=== PATIENT | female | born 1945 | race Caucasian/White ===

== ENCOUNTER 2017-07-29 11:16 | Inpatient (IN) | payer MEDICARE, OTHER ==
[~2017-07-29] VITALS: Ht 165.1 cm; Wt 103.9 kg
[~2017-07-29 11:16] MED LIST: ACET325 PO; ACETAMINOPHEN; ASPI81EC PO; BENICAR/HCTZ; CALCAVITDA PO; COLACE CLEAR50 MG PO; CYCL10 PO; DIPH50 PO; DOCU100 PO; DULO60 PO; ENOX100I SUBQ; FERR325 PO; GABA300 PO; GABA600 PO; HYDACE5; Hair, Skin & N1 EACH PO; LEVA.63IS INH; LEVSOD100 PO; LOSARTAN-HCTZ1 EAC2 PO; LOSHYD PO; MAGNESIUM PO; MULVITMIND PO; Micro-K10 MEQ PO; OMEP20ER PO; OMEPRAZOLE MAGN20 MG PO; OSTERA TABLET1 EACH PO; POLY500 PO; POTCHL10ER PO; PROACE100 PO; ROSU10TA PO; ROSU5 PO; TAMO20 PO; Unithroid100 MCG PO; VICODIN 5-3001 EACH PO; Ventolin/Prove6.7 GM INH; WARF2.5 PO; WARF5 PO; [UNRECOGNIZED DRUG - OTHER] PO
[2017-08-01 05:13] LABS: BASOPHILS ABSOLUTE AUTO 0.01 K/mm3 (0.00-0.23); BASOPHILS PERCENT AUTO 0 % (0-2); EOSINOPHILS ABSOLUTE AUTO 0.01 K/mm3 (0.00-0.68); EOSINOPHILS PERCENT AUTO 0 % (0-6); Hematocrit 32.3 % (33.0-51.0); Hemoglobin 10.5 g/dL (11.5-16.0); IMMATURE GRAN ABSOLUTE AUTO 0.02 K/mm3 (0.00-0.10); IMMATURE GRAN PERCENT AUTO 0 % (0-1); LYMPHOCYTES ABSOLUTE AUTO 1.15 K/mm3 (0.84-5.20); LYMPHOCYTES PERCENT AUTO 19 % (21-46); MONOCYTES ABSOLUTE AUTO 0.67 K/mm3 (0.16-1.47); MONOCYTES PERCENT AUTO 11 % (4-13); Mean Corpuscular HGB 32.5 pg (26.0-34.0); Mean Corpuscular HGB Conc 32.5 g/dL (31.5-36.5); Mean Corpuscular Volume 100 fL (80-100); Mean Platelet Volume 9.3 fL (9.1-12.4); NEUTROPHILS ABSOLUTE AUTO 4.37 K/mm3 (1.96-9.15); NEUTROPHILS PERCENT AUTO 70 % (41-73); Platelet Count 203 K/mm3 (150-400); RDW Coefficient Variation 13.2 % (11.7-14.2); RDW Standard Deviation 48.8 fL (35.1-46.3); Red Blood Cell Count 3.23 M/mm3 (3.80-5.20); White Blood Cell Count 6.23 K/mm3 (4.00-11.30)
[2017-08-01 05:45] LABS: Anion Gap 7 mmol/L (6-16); Blood Urea Nitrogen 14 mg/dL (8-24); Bun/Creatinine Ratio 15.3 (12.0-20.0); CO2, Blood 30 mmol/L (21-32); Chloride, Blood 105 mmol/L (98-108); Creatinine, Blood 0.92 mg/dL (0.40-1.00); Glomerular Filtration Rate >60 (60-); Glucose, Blood 121 mg/dL (70-99); Potassium, Blood 3.4 mmol/L (3.5-5.5); Sodium, Blood 142 mmol/L (136-145)
[2017-08-01] MEDS ORDERED: Percocet 5-3251 EACH PO (09:25)
[2017-08-01] MEDS ORDERED: XARELTO10 MG PO (09:26)
== END 2017-08-01 15:58 | disposition home or self-care (01) | DRG 470 ==
LOC: SURS 07-31 08:02 → PRE IP 07-31 10:00 → SURS 07-31 13:57
PROVIDERS: Orthopaedic Surgery
PROC: 0SR90JZ Replacement of Right Hip Joint with Synthetic Substitute, Open Approach (ICD-10-PCS; principal; 2017-07-31 10:00)
DX: M16.11 Unilateral primary osteoarthritis, right hip (principal); M79.7 Fibromyalgia; E03.9 Hypothyroidism, unspecified; Z85.3 Personal history of malignant neoplasm of breast; E11.9 Type 2 diabetes mellitus without complications; K21.9 Gastro-esophageal reflux disease without esophagitis
CPT/HCPCS: 36415; 72170; 80048; 85025; 86850; 86900; 86901; 88300; 94760; 97110; 97116; 97161; 97530; C1776; G8978; G8979; J0171; J0690; J0735; J2250; J2370; J2765; J2795; J3010; J7120

== ENCOUNTER → 2017-08-20 | Outpatient (CLI) | payer MEDICARE, OTHER ==
[~2017-08-20] MED LIST changes: +Percocet 5-3251 EACH PO; +XARELTO10 MG PO
== END | disposition home or self-care (01) ==
LOC: LAB 12:31 → LAB SHORT 12:31
DX: L53.9 Erythematous condition, unspecified (principal); Z96.641 Presence of right artificial hip joint
CPT/HCPCS: 87070; 87075; 87077; 87186; 87205

== ENCOUNTER 2017-10-21 08:34 | Day surgery (SDC) | payer MEDICARE, OTHER ==
[~2017-10-21] VITALS: Ht 165.1 cm; Wt 101.2 kg
[~2017-10-21 08:34] MED LIST changes: +HYDR1TAB94 PO; -MAGNESIUM PO; +MAGOXI400 PO
[2017-10-22 04:14] LABS: BASOPHILS ABSOLUTE AUTO 0.01 K/mm3 (0.00-0.23); BASOPHILS PERCENT AUTO 0 % (0-2); EOSINOPHILS PERCENT AUTO 0 % (0-6); Hematocrit 31.9 % (33.0-51.0); Hemoglobin 10.2 g/dL (11.5-16.0); IMMATURE GRAN ABSOLUTE AUTO 0.04 K/mm3 (0.00-0.10); IMMATURE GRAN PERCENT AUTO 0 % (0-1); LYMPHOCYTES ABSOLUTE AUTO 1.52 K/mm3 (0.84-5.20); LYMPHOCYTES PERCENT AUTO 16 % (21-46); MONOCYTES ABSOLUTE AUTO 1.04 K/mm3 (0.16-1.47); MONOCYTES PERCENT AUTO 11 % (4-13); Mean Corpuscular HGB 31.9 pg (26.0-34.0); Mean Corpuscular Volume 100 fL (80-100); Mean Platelet Volume 8.6 fL (9.1-12.4); NEUTROPHILS ABSOLUTE AUTO 6.97 K/mm3 (1.96-9.15); NEUTROPHILS PERCENT AUTO 73 % (41-73); Platelet Count 221 K/mm3 (150-400); RDW Coefficient Variation 13.8 % (11.7-14.2); RDW Standard Deviation 50.9 fL (35.1-46.3); White Blood Cell Count 9.58 K/mm3 (4.00-11.30)
[2017-10-22 04:34] LABS: Anion Gap 7 mmol/L (6-16); Blood Urea Nitrogen 16 mg/dL (8-24); Bun/Creatinine Ratio 17.8 (12.0-20.0); CO2, Blood 28 mmol/L (21-32); Calcium, Blood 8.4 mg/dL (8.5-10.1); Chloride, Blood 106 mmol/L (98-108); Glomerular Filtration Rate >60 (60-); Glucose, Blood 135 mg/dL (70-99); Potassium, Blood 3.8 mmol/L (3.5-5.5); Sodium, Blood 141 mmol/L (136-145)
[2017-10-23] MEDS ORDERED: XARELTO10 MG PO (10:23)
[2017-10-23] MEDS ORDERED: Percocet 5-3251 EACH PO (10:24)
== END 2017-10-23 14:11 | disposition home or self-care (01) ==
LOC: SURS 08:34 → ORSCMMR 08:34 → ORD 10:00 → ORSCMMR 10:00 → SURS 12:24 → ORSCMMR 10-23 14:11
PROVIDERS: Orthopaedic Surgery
PROC: 0SRD0JA Replacement of Left Knee Joint with Synthetic Substitute, Uncemented, Open Approach (ICD-10-PCS; principal; 2017-10-21 10:00)
DX: M17.12 Unilateral primary osteoarthritis, left knee (principal); Z01.818 Encounter for other preprocedural examination; I10 Essential (primary) hypertension; E11.9 Type 2 diabetes mellitus without complications; E03.9 Hypothyroidism, unspecified; E78.5 Hyperlipidemia, unspecified; M79.7 Fibromyalgia; K21.9 Gastro-esophageal reflux disease without esophagitis; E66.01 Morbid (severe) obesity due to excess calories; Z68.37 Body mass index [BMI] 37.0-37.9, adult; J45.909 Unspecified asthma, uncomplicated; Z79.899 Other long term (current) drug therapy
CPT/HCPCS: 36415; 73560-LT; 80048; 82947; 85025; 86850; 86900; 86901; 88300; 97110; 97116; 97161; 97530; C1776; G8978; G8979; G8980; J0171; J0690; J0735; J1100; J2250; J2405; J2795; J3010; J7120; Q0163

== ENCOUNTER 2018-03-05 10:50 | Observation (INO) | payer MEDICARE, OTHER ==
[~2018-03-05] VITALS: Ht 165.1 cm; Wt 110.3 kg
[2018-03-05 11:35] LABS: BASOPHILS ABSOLUTE AUTO 0.04 K/mm3 (0.00-0.23); BASOPHILS PERCENT AUTO 1 % (0-2); EOSINOPHILS ABSOLUTE AUTO 0.13 K/mm3 (0.00-0.68); EOSINOPHILS PERCENT AUTO 3 % (0-6); Hematocrit 41.2 % (33.0-51.0); Hemoglobin 12.8 g/dL (11.5-16.0); IMMATURE GRAN ABSOLUTE AUTO 0.01 K/mm3 (0.00-0.10); IMMATURE GRAN PERCENT AUTO 0 % (0-1); LYMPHOCYTES ABSOLUTE AUTO 1.45 K/mm3 (0.84-5.20); LYMPHOCYTES PERCENT AUTO 32 % (21-46); MONOCYTES ABSOLUTE AUTO 0.41 K/mm3 (0.16-1.47); MONOCYTES PERCENT AUTO 9 % (4-13); Mean Corpuscular HGB 31.8 pg (26.0-34.0); Mean Corpuscular HGB Conc 31.1 g/dL (31.5-36.5); Mean Corpuscular Volume 102 fL (80-100); Mean Platelet Volume 8.7 fL (9.1-12.4); NEUTROPHILS ABSOLUTE AUTO 2.52 K/mm3 (1.96-9.15); NEUTROPHILS PERCENT AUTO 55 % (41-73); Platelet Count 250 K/mm3 (150-400); RDW Standard Deviation 53.6 fL (35.1-46.3); Red Blood Cell Count 4.03 M/mm3 (3.80-5.20); White Blood Cell Count 4.56 K/mm3 (4.00-11.30)
[2018-03-05 11:50] LABS: Alanine Aminotransfer (ALT/SGP 27 U/L (12-78); Albumin, Blood 3.7 g/dL (3.4-5.0); Albumin/Globulin Ratio 0.9 (0.8-1.8); Alk Phos 98 U/L (50-136); Anion Gap 6 mmol/L (6-16); Aspartate Aminotrans (AST/SGOT 29 U/L (12-37); Bilirubin, Total 0.3 mg/dL (0.1-1.0); Blood Urea Nitrogen 14 mg/dL (8-24); Bun/Creatinine Ratio 16.4 (12.0-20.0); CO2, Blood 30 mmol/L (21-32); Calcium, Blood 9.2 mg/dL (8.5-10.1); Chloride, Blood 107 mmol/L (98-108); Creatinine, Blood 0.85 mg/dL (0.40-1.00); Globulin, Blood 4.1 g/dL (2.2-4.0); Glomerular Filtration Rate >60 (60-); Glucose, Blood 147 mg/dL (70-99); Potassium, Blood 3.9 mmol/L (3.5-5.5); Sodium, Blood 143 mmol/L (136-145); Total Protein, Blood 7.8 g/dL (6.4-8.2)
[2018-03-05 11:56] LABS: Prothrombin Time Results 10.3 Sec (9.7-11.5)
[2018-03-05] MEDS ORDERED: GABA100 PO ×2 (14:09)
[2018-03-05] MEDS ORDERED: VICODIN 5-3001 EACH PO (14:10)
[2018-03-05] MEDS ORDERED: LOSARTAN-HCTZ1 EACH PO (14:11)
[2018-03-05] MEDS ORDERED: GABA300 PO ×2 (14:11→14:12)
[2018-03-05 19:26] LABS: CHOL/HDL RATIO 4.3; Cholesterol 220 mg/dL (50-200); HDL Cholesterol 51 mg/dL (>39); LDL/HDL RATIO 2.5; Low Density Lipoprotein Chol 129 mg/dL (0-110); Triglycerides 199 mg/dL (30-160); Very Low Density Lipoprot Chol 40 mg/dL (6-32)
[2018-03-06 04:57] LABS: BASOPHILS ABSOLUTE AUTO 0.03 K/mm3 (0.00-0.23); BASOPHILS PERCENT AUTO 1 % (0-2); EOSINOPHILS ABSOLUTE AUTO 0.12 K/mm3 (0.00-0.68); EOSINOPHILS PERCENT AUTO 3 % (0-6); Hematocrit 37.4 % (33.0-51.0); Hemoglobin 11.9 g/dL (11.5-16.0); IMMATURE GRAN ABSOLUTE AUTO 0.01 K/mm3 (0.00-0.10); IMMATURE GRAN PERCENT AUTO 0 % (0-1); LYMPHOCYTES ABSOLUTE AUTO 1.38 K/mm3 (0.84-5.20); LYMPHOCYTES PERCENT AUTO 30 % (21-46); MONOCYTES ABSOLUTE AUTO 0.54 K/mm3 (0.16-1.47); MONOCYTES PERCENT AUTO 12 % (4-13); Mean Corpuscular HGB 31.6 pg (26.0-34.0); Mean Corpuscular HGB Conc 31.8 g/dL (31.5-36.5); NEUTROPHILS ABSOLUTE AUTO 2.54 K/mm3 (1.96-9.15); NEUTROPHILS PERCENT AUTO 55 % (41-73); Platelet Count 233 K/mm3 (150-400); RDW Coefficient Variation 13.9 % (11.7-14.2); RDW Standard Deviation 50.8 fL (35.1-46.3); Red Blood Cell Count 3.77 M/mm3 (3.80-5.20); White Blood Cell Count 4.62 K/mm3 (4.00-11.30)
[2018-03-06 04:59] LABS: Mean Corpuscular Volume 99 fL (80-100)
[2018-03-06 05:23] LABS: Anion Gap 9 mmol/L (6-16); Blood Urea Nitrogen 10 mg/dL (8-24); CO2, Blood 25 mmol/L (21-32); Calcium, Blood 9.1 mg/dL (8.5-10.1); Chloride, Blood 108 mmol/L (98-108); Creatinine, Blood 0.83 mg/dL (0.40-1.00); Glomerular Filtration Rate >60 (60-); Glucose, Blood 105 mg/dL (70-99); Potassium, Blood 3.6 mmol/L (3.5-5.5); Sodium, Blood 142 mmol/L (136-145)
--- NOTE | 2018-03-06 06:19 | NUR ---
*SHIFT SUMMARY* PATIENT WAS NEW ADMIT AT BEGINING OF SHIFT, PATIENT ARRIVED FROM ED VIA WHEELCHAIR. PATIENT IS ALERT AND ORIENTED. PATIENT HAS RIGHT SIDED FACIAL DROOP. SPEECH IS INTACT. PATIENT'S IV IN RIGHT AC INFILTRATED. NEW IV STARTED. PATIENT IS SBA TO BATHROOM. BED LOWERED AND LOCKED. PATIENT IS NPO. PATIENT IS TO HAVE A SWALLOW EVAL TODAY. PATIENT DID NOT SLEEP WELL THROUGHOUT THE NIGHT. PATIENT STATES THAT SHE HAS 10/10 FACIAL AND EAR PAIN TO THE RIGHT SIDE. PATIENT RECIEVED ORAL MEDICATION SEE EMAR. PATIENT SWALLOWED PILLS WELL WITHOUT CHOKING OR COMPLICATION. AFTER MEDICATING THIS NURSE READ IN CHART THAT ADMITTING DOCTOR WANTED TO HOLD ALL ORAL MEDICATIONS UNTIL AFTER SWALLOW EVALUATION. THIS WAS NOT PASSED ALONG IN REPORT. NUCLEAR MEDICINE SPECIALIST NOTIFIED. WILL PASS ALONG TO DAYSHIFT RN. MRI FORM FILLED OUT AND FAXED. CALL LIGHT WITHIN REACH. BED LOWERED AND LOCKED.
[2018-03-06] MEDS ORDERED: ASPI81CH PO (18:02)
[2018-03-06] MEDS ORDERED: ACET325 PO (18:03)
[2018-03-06] MEDS ORDERED: FAMC500 PO (18:04)
[2018-03-06] MEDS ORDERED: PRED20 PO (18:04)
--- NOTE | 2018-03-06 18:14 | NUR ---
DISCHARGE NOTE PT DISCHARGED POV WITH FAMILY AND IN NO ACUTE DISTRESS; IV AND TELE DISCONTINUED. PT VERBALIZED UNDERSTANDING OF DISCHARGE, FOLLOW UP AND MEDICATION INSTRUCTIONS.
== END 2018-03-06 18:06 | disposition home or self-care (01) ==
LOC: ER 10:50 → MEDS 10:51
PROVIDERS: Physician Assistant; ADMIT Internal Medicine
DX: R29.810 Facial weakness (principal); E11.40 Type 2 diabetes mellitus with diabetic neuropathy, unspecified; I10 Essential (primary) hypertension; J45.909 Unspecified asthma, uncomplicated; E78.5 Hyperlipidemia, unspecified; Z88.8 Allergy status to other drugs, medicaments and biological substances; Z88.5 Allergy status to narcotic agent; Z79.899 Other long term (current) drug therapy; Z85.3 Personal history of malignant neoplasm of breast; Z86.711 Personal history of pulmonary embolism
CPT/HCPCS: 36415; 70450; 70496; 70498; 70551; 80048; 80053; 80061; 82947; 83036; 83605; 85025; 85610; 85651; 85730; 86140; 92610; 93005; 93010; 93306; 94760; 96360; 96361; 96372; 99285-25; G0378; G8996; G8997; G8998; J1650; J7030; Q9967

== ENCOUNTER → 2018-04-10 | Outpatient (CLI) | payer MEDICARE, OTHER ==
[~2018-04-10] MED LIST changes: +ASPI81CH PO; +FAMC500 PO; +GABA100 PO; +LOSARTAN-HCTZ1 EACH PO; +PRED20 PO
== END ==
LOC: LAB SHORT 10:44 → LAB SRC 10:44
DX: R35.0 Frequency of micturition (principal); R30.0 Dysuria
CPT/HCPCS: 87086

== ENCOUNTER → 2018-04-22 | Outpatient (CLI) | payer MEDICARE, OTHER ==
[2018-04-22 17:23] LABS: Bilirubin, Urine Neg (Neg); Blood, Urine Neg (Neg); Glucose Qualitative, Urine Neg (Neg); Ketones, Urine Neg (Neg); Leukocyte Esterase, Urine 2+ (Neg); Nitrite, Urine Neg (Neg); Protein, Urine 1+ (Neg); Urobilinogen, Urine NORM (Normal)
[2018-04-22 17:32] LABS: Appearance, Urine Clear (Clear); Color, Urine Yellow (P-Yellow)
[2018-04-22 17:33] LABS: Bacteria Few /hpf; Red Blood Cells, Urine 0-2 /hpf (0-2); Squamous Epithelial Cells Few /hpf (Few); Transitional Epithelial Cells Few /hpf (0-Rare)
== END | disposition home or self-care (01) ==
LOC: LAB SHORT 15:08 → LAB SRC 15:08
PROVIDERS: Registered Nurse
DX: R30.0 Dysuria (principal); R35.0 Frequency of micturition
CPT/HCPCS: 81001; 87086; 88108

== ENCOUNTER → 2018-11-12 | Outpatient (CLI) | payer MEDICARE, OTHER ==
[2018-11-16 14:06] LABS: HPV 16 Negative (Negative); HPV 18 Negative (Negative); HPV OTHER HR TYPES Negative (Negative)
== END | disposition home or self-care (01) ==
LOC: LAB SHORT 10:22 → LAB SRC 10:22
PROVIDERS: Registered Nurse
DX: Z12.4 Encounter for screening for malignant neoplasm of cervix (principal)
CPT/HCPCS: 87624; G0123

== ENCOUNTER 2019-07-30 10:11 | Day surgery (SDC) | payer MEDICARE, OTHER ==
[~2019-07-30] VITALS: Ht 167.6 cm; Wt 98.6 kg
[~2019-07-30 10:11] MED LIST changes: +ASCO500 PO; +Acetaminophen500 MG; +BENADRYL25 MG; +CENTRUM SILVER1 EAC2; +CYCL10; +DOCU100; +DULO60; +EUTHYROX100 MCG; +FIBER LAXATIVE; +GABA300; +HAIR SKIN NAILS PO; +KLOR-CON M1010 MEQ; +LOSARTAN-HCTZ1 EACH; +MEMA5TAB; +MEMA5TAB PO; +Norco 5-325 Ta1 EACH; +OMEP20ER; +OYSTER SHELL 51 EACH; +OYSTER SHELL 51 EACH PO; +ROSU5; +THERA1 EACH PO; +Vitamin D2000 UNIT; +Xopenex Hfa15 GM
[2019-07-30] MEDS ORDERED: MAGNESIUM OXID500 MG PO (11:12)
== END 2019-07-30 13:36 | disposition home or self-care (01) ==
LOC: ORSCSDS 10:11
PROVIDERS: Podiatrist Foot & Ankle Surgery
PROC: 0LBW0ZZ Excision of Left Foot Tendon, Open Approach (ICD-10-PCS; principal; 2019-07-30 12:00)
DX: M67.472 Ganglion, left ankle and foot (principal); I10 Essential (primary) hypertension; E11.9 Type 2 diabetes mellitus without complications; E78.5 Hyperlipidemia, unspecified; E66.01 Morbid (severe) obesity due to excess calories; Z68.41 Body mass index [BMI] 40.0-44.9, adult; Z79.899 Other long term (current) drug therapy; E03.9 Hypothyroidism, unspecified; J45.909 Unspecified asthma, uncomplicated; G47.33 Obstructive sleep apnea (adult) (pediatric); Z79.01 Long term (current) use of anticoagulants
CPT/HCPCS: 82947; J0171; J0690; J2704; J3010; J7120

== ENCOUNTER 2020-09-01 21:05 | Emergency (ER) | payer MEDICARE, OTHER ==
[~2020-09-01] VITALS: Ht 165.1 cm; Wt 119.8 kg
[~2020-09-01 21:05] MED LIST changes: +MAGNESIUM OXID500 MG PO
[2020-09-01 23:23] LABS: BASOPHILS ABSOLUTE AUTO 0.02 K/mm3 (0.00-0.23); BASOPHILS PERCENT AUTO 0 % (0-2); EOSINOPHILS ABSOLUTE AUTO 0.02 K/mm3 (0.00-0.68); EOSINOPHILS PERCENT AUTO 0 % (0-6); Hematocrit 40.8 % (33.0-51.0); Hemoglobin 13.7 g/dL (11.5-16.0); IMMATURE GRAN ABSOLUTE AUTO 0.06 K/mm3 (0.00-0.10); IMMATURE GRAN PERCENT AUTO 0 % (0-1); LYMPHOCYTES ABSOLUTE AUTO 0.89 K/mm3 (0.84-5.20); LYMPHOCYTES PERCENT AUTO 7 % (21-46); MONOCYTES ABSOLUTE AUTO 0.88 K/mm3 (0.16-1.47); MONOCYTES PERCENT AUTO 7 % (4-13); Mean Corpuscular HGB 33.2 pg (26.0-34.0); Mean Corpuscular HGB Conc 33.6 g/dL (31.5-36.5); Mean Corpuscular Volume 99 fL (80-100); NEUTROPHILS ABSOLUTE AUTO 11.59 K/mm3 (1.96-9.15); NEUTROPHILS PERCENT AUTO 86 % (41-73); Platelet Count 278 K/mm3 (150-400); RDW Coefficient Variation 13.2 % (11.7-14.2); RDW Standard Deviation 48.1 fL (35.1-46.3); Red Blood Cell Count 4.13 M/mm3 (3.80-5.20); White Blood Cell Count 13.46 K/mm3 (4.00-11.30)
[2020-09-01 23:44] LABS: Albumin, Blood 3.9 g/dL (3.4-5.0); Albumin/Globulin Ratio 0.9 (0.8-1.8); Bilirubin, Total 0.5 mg/dL (0.1-1.0); Bun/Creatinine Ratio 13.9 (12.0-20.0); Calcium, Blood 9.9 mg/dL (8.5-10.1); Creatinine, Blood 1.08 mg/dL (0.40-1.00); Globulin, Blood 4.3 g/dL (2.2-4.0); Potassium, Blood 3.2 mmol/L (3.5-5.5); Total Protein, Blood 8.2 g/dL (6.4-8.2)
[2020-09-02 00:07] LABS: Source, Urine Clean Catch
[2020-09-02 00:10] LABS: Appearance, Urine Clear (Clear); Bilirubin, Urine Neg (Neg); Blood, Urine Neg (Neg); Color, Urine Amber (P-Yellow); Glucose Qualitative, Urine Neg (Neg); Ketones, Urine 1+ (Neg); Leukocyte Esterase, Urine 2+ (Neg); Nitrite, Urine Neg (Neg); Protein, Urine 2+ (Neg); Urobilinogen, Urine NORM (Normal)
[2020-09-02 00:18] LABS: Red Blood Cells, Urine 0-2 /hpf (0-2); Squamous Epithelial Cells Few /hpf (Few)
[2020-09-02 00:19] LABS: Bacteria Many /hpf; Mucus Light (0-Heavy)
[2020-09-02] MEDS ORDERED: AMOCLA875 PO (03:41)
== END 2020-09-02 04:10 | disposition home or self-care (01) ==
LOC: ER 21:05
PROVIDERS: Physician Assistant
DX: K57.12 Diverticulitis of small intestine without perforation or abscess without bleeding (principal); Z88.6 Allergy status to analgesic agent; Z88.8 Allergy status to other drugs, medicaments and biological substances; Z91.011 Allergy to milk products; Z91.018 Allergy to other foods; Z79.899 Other long term (current) drug therapy
CPT/HCPCS: 36415; 74177; 80053; 81001; 83690; 85025; 87086; 99284-25; A9270; Q9967

== ENCOUNTER → 2022-02-11 | Outpatient (CLI) | payer MEDICARE, OTHER ==
[~2022-02-11] MED LIST changes: +AMOCLA875 PO
== END ==
LOC: LAB SHORT 12:50 → LAB 12:50
DX: R39.9 Unspecified symptoms and signs involving the genitourinary system (principal)
CPT/HCPCS: 87086

== ENCOUNTER 2022-03-28 07:50 | Day surgery (SDC) | payer MEDICARE, OTHER ==
[~2022-03-28] VITALS: Ht 162.6 cm; Wt 110.0 kg
[~2022-03-28 07:50] MED LIST changes: -DULO60; -GABA300; -KLOR-CON M1010 MEQ; +KLOR-CON M1010 MEQ PO; +LEVOXYL PO; -LOSARTAN-HCTZ1 EACH; +NITR100CA PO; +Norco 5-325 Ta1 EACH PO; -OMEP20ER; -ROSU5
--- NOTE | 2022-03-28 08:28 | NUR ---
Ambulatory in Day Surgery. Pre-Op teaching done. Pt verbalizes understanding. Patient confirms NPO status and agrees with scheduled surgery. Patient states colon prep results clear. Patient States Post-Procedure ride home has been arranged.
--- NOTE | 2022-03-28 09:56 | NUR ---
03/28/22 0956 Jerrod Connelly SEE ANESTHESIA RECORD
--- NOTE | 2022-03-28 10:56 | NUR ---
1047- VSS. NO C/O VERBALIZED. UP TO DRESS. GAIT STEADY. Discharge instructions reviewed with patient. Patient verbalizes understanding. Copy given to patient to take home. Patient States Post-Procedure ride home has been arranged with her , Terry.
== END 2022-03-28 10:54 | disposition home or self-care (01) ==
LOC: ORSCMMR 07:50 → ORD 09:30 → ORSCMMR 09:30
PROVIDERS: Internal Medicine Gastroenterology
PROC: 0DBK8ZX Excision of Ascending Colon, Via Natural or Artificial Opening Endoscopic, Diagnostic (ICD-10-PCS; principal; 2022-03-28 09:30)
DX: Z12.11 Encounter for screening for malignant neoplasm of colon (principal); Z86.010 Personal history of colon polyps; D12.2 Benign neoplasm of ascending colon; I10 Essential (primary) hypertension; E11.9 Type 2 diabetes mellitus without complications; K21.9 Gastro-esophageal reflux disease without esophagitis; E66.01 Morbid (severe) obesity due to excess calories; Z68.41 Body mass index [BMI] 40.0-44.9, adult; Z79.899 Other long term (current) drug therapy
CPT/HCPCS: 82947; 88305; J2704; J7120

== ENCOUNTER 2024-03-01 12:43 | Emergency (ER) | payer MEDICARE, OTHER ==
[~2024-03-01] VITALS: Ht 165.1 cm; Wt 102.5 kg
[2024-03-01 12:59] VITALS: BP 157/95
== END 2024-03-01 16:10 | disposition home or self-care (01) ==
LOC: ER 12:43
DX: S69.92XA Unspecified injury of left wrist, hand and finger(s), initial encounter (principal); I10 Essential (primary) hypertension; E11.9 Type 2 diabetes mellitus without complications; J45.909 Unspecified asthma, uncomplicated; W18.30XA Fall on same level, unspecified, initial encounter; Z79.899 Other long term (current) drug therapy; Z88.0 Allergy status to penicillin; Z91.011 Allergy to milk products; Z88.6 Allergy status to analgesic agent; Z91.018 Allergy to other foods; Z88.5 Allergy status to narcotic agent; Z88.1 Allergy status to other antibiotic agents; Z88.8 Allergy status to other drugs, medicaments and biological substances
CPT/HCPCS: 73130; 99283-25

== ENCOUNTER 2024-09-24 07:35 | Day surgery (SDC) | payer MEDICARE, OTHER ==
[~2024-09-24] VITALS: Ht 152.4 cm; Wt 104.7 kg
[2024-09-24] MEDS ORDERED: LEVOCETIRIZINE D5 MG (08:31)
[2024-09-24] MEDS ORDERED: HYDCHL25 (08:31)
[2024-09-24] MEDS ORDERED: BREO ELLIPTA 11 EAC1 (08:33)
[2024-09-24] MEDS ORDERED: FOLI1 (08:34)
[2024-09-24] MEDS ORDERED: RIVIVE3 MG (08:35)
[2024-09-24] MEDS ORDERED: NYSTRIT (08:35)
[2024-09-24 11:51] VITALS: BP 141/76
== END 2024-09-24 11:39 | disposition home or self-care (01) ==
LOC: ORSCSDS 07:35
PROVIDERS: Internal Medicine Gastroenterology
PROC: 0DB68ZX Excision of Stomach, Via Natural or Artificial Opening Endoscopic, Diagnostic (ICD-10-PCS; principal; 2024-09-24 10:45)
PROC: 0DB98ZX Excision of Duodenum, Via Natural or Artificial Opening Endoscopic, Diagnostic (ICD-10-PCS; principal; 2024-09-24 10:45)
DX: K21.9 Gastro-esophageal reflux disease without esophagitis (principal); K29.70 Gastritis, unspecified, without bleeding; Z80.0 Family history of malignant neoplasm of digestive organs; R10.13 Epigastric pain; Z86.0101 Personal history of adenomatous and serrated colon polyps; G47.33 Obstructive sleep apnea (adult) (pediatric); E66.9 Obesity, unspecified; Z68.42 Body mass index [BMI] 45.0-49.9, adult
CPT/HCPCS: 82947; 88305; 88342; J2704; J7120

== ENCOUNTER 2025-02-09 21:49 | Emergency (ER) | payer MEDICARE, OTHER ==
[~2025-02-09] VITALS: Ht 165.1 cm; Wt 105.2 kg
[~2025-02-09 21:49] MED LIST changes: +BREO ELLIPTA 11 EAC1; +FOLI1; +HYDCHL25; +LEVOCETIRIZINE D5 MG; +NYSTRIT; +RIVIVE3 MG
[2025-02-09 22:06] VITALS: BP 177/108
== END 2025-02-09 22:13 | disposition home or self-care (01) ==
LOC: ER 21:49
DX: M25.511 Pain in right shoulder (principal); I10 Essential (primary) hypertension; E11.9 Type 2 diabetes mellitus without complications; Z79.51 Long term (current) use of inhaled steroids; Z79.899 Other long term (current) drug therapy; Z91.0110 Allergy to milk products, unspecified; Z88.1 Allergy status to other antibiotic agents; Z88.5 Allergy status to narcotic agent; Z88.0 Allergy status to penicillin; Z88.6 Allergy status to analgesic agent; Z88.8 Allergy status to other drugs, medicaments and biological substances
CPT/HCPCS: 93005; 93010; 99283-25